=== PATIENT | female | born 1930 | race Caucasian/White ===

== ENCOUNTER → 2016-09-14 | Outpatient (CLI) | payer MEDICARE, OTHER ==
[~2016-09-14] MED LIST: ACET-2890 PO; ATEN100T PO; BISA5TAB12 PO; CALC-946 PO; CHLO118M SSP; CLON0.2T PO; CLOP75TA33 PO; DEXT15DR5 BOTH EYES; DOCU-168 PO; DULO60CA56 PO; IPRA3AMP AEROSOL; LISI-621 PO; MAGN400O4 PO; MINE120C3 TOP; MV-M1TAB2 PO; NIFE60TA10 PO; ONDA-55 PO; POLY17PO6 PO; POTA20TA10 PO; SULF1TAB42 PO; TRAM50TA53 PO
== END ==
LOC: LABNH.AP 00:46
PROVIDERS: ATTEND Family Medicine
DX: E11.9 Type 2 diabetes mellitus without complications (principal)
CPT/HCPCS: 36415; 83036; P9604

== ENCOUNTER → 2016-10-19 | Outpatient (CLI) | payer MEDICARE, OTHER ==
[2016-10-19 16:36] LABS: BLOOD, URINE 3+ (NEGATIVE); COLOR,URINE YELLOW (YELLOW); LEUKOCYTE ESTERASE ,URINE 3+ (NEGATIVE); NITRITE,URINE POSITIVE (NEGATIVE); UROBILINOGEN,URINE 0.2 EU/DL (NORMAL)
[2016-10-19 16:45] LABS: BACTERIA,URINE 3+ (NEGATIVE); RBC,URINE 0-1 /HPF (0-3); WBC,URINE TNTC /HPF (0-5)
[2016-10-19 16:46] LABS: SQUAMOUS EPITHELIAL CELL,UR 0-5
== END ==
LOC: LABN.AP 16:19
PROVIDERS: ATTEND Family Medicine
DX: R31.9 Hematuria, unspecified (principal); R82.90 Unspecified abnormal findings in urine
CPT/HCPCS: 81001; 87077; 87086; 87186

== ENCOUNTER → 2016-10-26 | Outpatient (CLI) | payer MEDICARE, OTHER ==
[2016-10-26 08:32] LABS: ANION GAP 14 MEQ/L (5-15); BUN/CREATININE RATIO 23 RATIO (6-26); CALCIUM 9.6 MG/DL (8.4-10.2); CHLORIDE 104 MEQ/L (98-107); CO2 - CARBON DIOXIDE 28 MEQ/L (22-30); CREATININE 0.7 MG/DL (0.7-1.2); GLOMERULAR FILTRATION RATE 80; GLUCOSE 164 MG/DL (65-110); POTASSIUM 3.9 MEQ/L (3.6-5); SODIUM 146 MEQ/L (134-144)
== END ==
LOC: LABNH.AP 00:34
PROVIDERS: ATTEND Family Medicine
DX: I10 Essential (primary) hypertension (principal)
CPT/HCPCS: 36415; 80048; P9604

== ENCOUNTER 2017-12-23 16:53 | Inpatient (IN) ==
[2017-12-23] MEDS ORDERED: SALINE FLUSH 10ml SYRINGE IVF PRN (17:07)
--- NOTE | 2017-12-23 18:31 | Emergency Department Report ---
General Adult HPI - General Chief complaint: Medical Emergency <Charles Albert - 12/23/17 18:52> Stated complaint: WEAKNESS, DECREASED O2 <Charles Albert - 12/23/17 18:52> Source: EMS, RN notes reviewed ( ) <Payal Hernandez 12/23/17 18:34> Mode of arrival: EMS <Payal Hernandez 12/23/17 18:34> Limitations: altered mental status <Payal Hernandez 12/23/17 18:34> - History of Present Illness HPI narrative: [place] after staff noted fever and decreased SpO2 today. Staff reports pt was recently placed on Keflex for "urinary retention". Pt chart has labs from 12/20/17 with fairly non acute findings. PT is non verbal and info is from EMS report only. <Payal Hernandez 12/23/17 18:51> Onset (ago): hour(s) <Payal Hernandez 12/23/17 18:51> Consistency: constant <Payal Hernandez 12/23/17 18:51> - Related Data Home Medications Medication Instructions Recorded Confirmed Acetaminophen [Acetaminophen 8 650 mg PO Q8H PRN #0 06/07/15 12/23/17 Hour] Atenolol [Tenormin] 100 mg PO DAILY 08/08/17 12/23/17 Chlorhexidine Rinse [Peridex] 15 ml MM HS 08/08/17 12/23/17 Cholecalciferol (Vitamin D3) 5,000 unit PO DAILY 08/08/17 12/23/17 [Vitamin D3] CloNIDine [Catapres] 0.2 mg PO TID 08/08/17 12/23/17 Docusate Sodium [Colace] 100 mg PO Q2D 08/08/17 12/23/17 Duloxetine [Cymbalta] 60 mg PO DAILY 08/08/17 12/23/17 Estradiol Vag Cream [Estrace Vag 1 applicatio [facility] 08/08/17 12/23/17 Cream] Lisinopril [Prinivil] 20 mg PO BID 08/08/17 12/23/17 Metformin [Glucophage] 500 mg PO BIDWM 08/08/17 12/23/17 Milk of Magnesia [Mom] 30 ml PO DAILY PRN 08/08/17 12/23/17 NIFEdipine [Adalat cc] 60 mg PO BID 08/08/17 12/23/17 Sennosides [Senna] 8.6 mg PO BID 08/08/17 12/23/17 Tramadol [Ultram] 50 mg PO Q6HR PRN 08/08/17 12/23/17 Acetaminophen [Acetaminophen ER] 650 mg PO BID 08/09/17 12/23/17 PEG 3350 17gm PACKET [Miralax] 17 gm PO DAILY PRN 08/09/17 12/23/17 Polyvinyl Alcohol [Artificial 1 drop EACH EYE BID 08/09/17 12/23/17 Tears] Atorvastatin [Lipitor] 10 mg PO HS 10/08/17 12/23/17 Clopidogrel [Plavix] 75 mg PO DAILY 10/08/17 12/23/17 Eucerin Cream [Eucerin] 1 applicatio TP DAILY PRN 10/08/17 12/23/17 Guaifenesin/Dextromethorphan 10 ml PO Q4H PRN 10/08/17 12/23/17 [Diabetic Tussin Dm Max-Str Liq] Mirabegron [Myrbetriq] 25 mg PO DAILY 10/08/17 12/23/17 Multivit,Calc,Mins/Iron/Folic 1 tab PO DAILY 10/08/17 12/23/17 [Thera-M Tablet] CephALEXin [Keflex 500 mg] 500 mg PO TID 12/23/17 12/23/17 <Charles Albert - 12/23/17 18:52> Allergies Allergy/AdvReac Type Severity Reaction Status Date / Time codeine AdvReac Unknown Vomiting Verified 12/23/17 17:25 <Charles Albert - 12/23/17 18:52> Review of Systems Limitations: ROS unobtainable due to patient's medical condition <Payal Hernandez - 12/23/17 18:51> PFS Patient Stated Medical History Cerebrovascular Accident Yes Dementia Yes Transient Ischemic Attacks ( Yes TIA) Cataracts Yes Congestive Heart Failure Yes Coronary Artery Disease Yes Heart Murmur Yes Hypertension Yes Rheumatic Fever Yes Asthma Yes Chronic Obstructive Pulmonary Yes Disease (COPD) Pneumonia Yes Sleep Apnea No Diabetes Mellitus Type 2 Yes Gastroesophageal Reflux No Disease Hx Incontinence Yes Hx Urinary Tract Infection Yes Clotting Problems Yes: takes plavix Anesthesia Reactions No Other Yes: Exc melanomas--skin graft left wrist Depression Yes Obsessive Compulsive Disorder Yes Post Menopausal Yes <Charles Albert Elissa 12/23/17 18:52> Patient Stated Medical History Cerebrovascular Accident Yes Dementia Yes Transient Ischemic Attacks ( Yes TIA) Cataracts Yes Congestive Heart Failure Yes Coronary Artery Disease Yes Heart Murmur Yes Hypertension Yes Rheumatic Fever Yes Asthma Yes Chronic Obstructive Pulmonary Yes Disease (COPD) Pneumonia Yes Sleep Apnea No Diabetes Mellitus Type 2 Yes Gastroesophageal Reflux No Disease Hx Incontinence Yes Hx Urinary Tract Infection Yes Clotting Problems Yes: takes plavix Anesthesia Reactions No Other Yes: Exc melanomas--skin graft left wrist Depression Yes Obsessive Compulsive Disorder Yes Post Menopausal Yes <Payal Hernandez 12/23/17 18:34> - Social History Smoking status: Never smoker <Payal Hernandez 12/23/17 18:34> second hand exposure: No <Payal Hernandez 12/23/17 18:34> Substance use type: does not use <Payal Hernandez 12/23/17 18:34> Alcohol intake frequency: does not drink <Payal Hernandez 12/23/17 18:34> Does patient use chewing tobacco?: No <Payal Hernandez 12/23/17 18:34> Physical Exam - Limitations Limitations: other (limited verbal/ slow to respond) <Payal Hernandez 18:51> - General General appearance: alert <Payal Hernandez 12/23/17 18:51> - Normal Exams: Head:: Normocephalic without trauma <Payal Hernandez 12/23/17 18:51> Eyes:: Pupils are PERRLA w/ EOMI <Payal Hernandez 12/23/17 18:51> Chest/Respirations:: Clear all hoover, with good airflow, and symmetry bilaterally (diminished bilaterally) <Payal Hernandez 12/23/17 18:51> Cardiovascular:: Regular rate and rhythm, without murmur or gallop, Pulses 2+ all extremities, capillary refill, <2 seconds all extremities <Payal Hernandez 12/23/17 18:51> Abdomen:: Bowel sounds positive, soft, non-tender, non-distended <Payal Hernandez - 12/23/17 18:51> Musculoskeletal:: No tenderness, or deformity noted, good range of motion, all extremities <Payal Hernandez 12/23/17 18:51> Integumentary:: No rashes <Payal Hernandez 12/23/17 18:51> Neurological:: Patient is alert (slow to respond, verbal appropriate), and oriented, cranial nerves, motor/sensory/cerebellar, exams w/o gross deficits, to observation <Payal Hernandez 12/23/17 18:51> Psychiatric:: Patient exhibits, appropriate attention, emotion and affect < Payal Hernandez 12/23/17 18:51> Course Vital Signs Temperature 98.8 F 12/23/17 16:53 Pulse Rate 76 12/23/17 16:53 Respiratory Rate 18 12/23/17 16:53 Blood Pressure 187/81 H 12/23/17 16:53 Pulse Oximetry 92 12/23/17 16:53 Temperature 98.8 F 12/23/17 16:53 Pulse Rate 74 12/23/17 18:00 Respiratory Rate 18 12/23/17 16:53 Blood Pressure 179/84 H 12/23/17 18:00 Pulse Oximetry 94 12/23/17 18:00 <Charles Albert C - 12/23/17 18:52> Vital Signs Temperature 98.8 F 12/23/17 16:53 Pulse Rate 76 12/23/17 16:53 Respiratory Rate 18 12/23/17 16:53 Blood Pressure 187/81 H 12/23/17 16:53 Pulse Oximetry 92 12/23/17 16:53 Temperature 98.8 F 12/23/17 16:53 Pulse Rate 74 12/23/17 18:00 Respiratory Rate 18 12/23/17 16:53 Blood Pressure 179/84 H 12/23/17 18:00 Pulse Oximetry 94 12/23/17 18:00 <Payal Hernandez - 12/23/17 18:34> Medical Decision Making - MDM Narrative Medical decision making narrative: EKG, labs and Xray reviewed. WBC elevated without source. Pt has been afebrile while in the ER. Unable to wean pt fro O2. Hospitalist contacted and will admit. Additional labs and CT requested and ordered. <Payal Hernandez - 12/23/17 18:51> - Differential Diagnosis UTI, pneumonia, A fib, hypoxia <Payal Hernandez - 12/23/17 18:51> - Lab Data Lab results reviewed: Yes: I reviewed the patient's lab results. <Payal Hernandez - 12/23/17 18:51> Result diagrams: 12/23/17 17:16 12/23/17 17:16 <Charles Albert C - 12/23/17 18:52> Lab Results 12/23/17 12/23/17 12/23/17 Range/Units 17:16 17:16 17:16 WBC 14.4 H (4.5-11.0) T/MM3 RBC 3.96 L (4.00-5.20) M/MM3 Hgb 12.8 (12-16) GM/DL Hct 40.8 (36-46) % MCV 103.0 H (80-100) UM3 MCH 32.3 (26-34) UUG MCHC 31.4 (31-37) GM/DL RDW Std Deviation 50.4 H (36.9-50.2) FL Plt Count 363 (130-400) T/MM3 MPV 10.1 (9.4-12.4) UM3 Immature Gran % (Auto) 0.3 (0.0-0.5) % Neut % (Auto) 73.0 H (33-66) % Lymph % (Auto) 21.1 L (23-45) % Henderson % (Auto) 5.3 (0-9.0) % Eos % (Auto) 0.2 (0-4) % Baso % (Auto) 0.1 (0-2) % Neut # (Auto) 10.5 H (1.8-7.7) T/MM3 Lymph # (Auto) 3.0 (1-4.8) T/MM3 Henderson # (Auto) 0.8 (0-0.8) T/MM3 Eos # (Auto) 0.0 (0-0.5) T/MM3 Baso # (Auto) 0.0 (0-0.2) T/MM3 Abs Immat Gran (auto) 0.04 H (0.00-0.03) T/MM3 Turbidity < 20 (0-20) Sodium 145 (136-146) MEQ/L Potassium 3.6 (3.6-5) MEQ/L Chloride 99 (98-107) MEQ/L Carbon Dioxide 33 H (22-30) MEQ/L Anion Gap 13 (5-15) meq/L BUN 14.0 (7-17) MG/DL Creatinine 0.6 L (0.7-1.2) mg/dL GFR Calculation 95 BUN/Creatinine Ratio 23 (6-26) RATIO Glucose 258 H (65-110) MG/DL Calculated Osmolality 289 H (261-280) MOSM/KG Calcium 9.8 (8.4-10.2) MG/DL Total Bilirubin 0.60 (0.20-1.30) MG/DL Icterus Index < 2 (0-7) AST 34 (14-36) U/L ALT 35 (1-35) U/L Alkaline Phosphatase 102 (38-126) U/L Total Protein 8.0 (6.3-8.2) g/dL Albumin 4.2 (3.5-5.0) g/dL Globulin 3.8 H (2.4-3.6) G/DL Albumin/Globulin Ratio 1.1 (1.1-2.2) RATIO Plasma Lactate (0.6-2.2) MMOL/L Specimen Hemolysis 31 H (0-25) Ur Collection Type Urine, cath norton Urine Color Yellow (YELLOW) Urine Clarity Clear Urine pH 7.0 (5.0-8.0) Ur Specific Mathews 1.010 L (1.015-1.025) Urine Protein 1+ A (NEGATIVE) Urine Glucose (UA) Negative (NEGATIVE) Urine Ketones Negative (NEGATIVE) Urine Occult Blood Negative (NEGATIVE) Urine Nitrate Negative (NEGATIVE) Urine Bilirubin Negative (NEGATIVE) Urine Urobilinogen 0.2 (NORMAL) EU/DL Ur Leukocyte Esterase Trace A (NEGATIVE) Urine RBC None seen (0-3) /HPF Urine WBC 5-10 H (0-5) /HPF Urine Bacteria None seen (NEGATIVE) Urine Yeast Pseudohyphae present A (NEGATIVE) Ur Culture Indicated? Cult not indicated 12/23/17 Range/Units 17:54 WBC (4.5-11.0) T/MM3 RBC (4.00-5.20) M/MM3 Hgb (12-16) GM/DL Hct (36-46) % MCV (80-100) UM3 MCH (26-34) UUG MCHC (31-37) GM/DL RDW Std Deviation (36.9-50.2) FL Plt Count (130-400) T/MM3 MPV (9.4-12.4) UM3 Immature Gran % (Auto) (0.0-0.5) % Neut % (Auto) (33-66) % Lymph % (Auto) (23-45) % Henderson % (Auto) (0-9.0) % Eos % (Auto) (0-4) % Baso % (Auto) (0-2) % Neut # (Auto) (1.8-7.7) T/MM3 Lymph # (Auto) (1-4.8) T/MM3 Henderson # (Auto) (0-0.8) T/MM3 Eos # (Auto) (0-0.5) T/MM3 Baso # (Auto) (0-0.2) T/MM3 Abs Immat Gran (auto) (0.00-0.03) T/MM3 Turbidity (0-20) Sodium (136-146) MEQ/L Potassium (3.6-5) MEQ/L Chloride (98-107) MEQ/L Carbon Dioxide (22-30) MEQ/L Anion Gap (5-15) meq/L BUN (7-17) MG/DL Creatinine (0.7-1.2) mg/dL GFR Calculation BUN/Creatinine Ratio (6-26) RATIO Glucose (65-110) MG/DL Calculated Osmolality (261-280) MOSM/KG Calcium (8.4-10.2) MG/DL Total Bilirubin (0.20-1.30) MG/DL Icterus Index (0-7) AST (14-36) U/L ALT (1-35) U/L Alkaline Phosphatase (38-126) U/L Total Protein (6.3-8.2) g/dL Albumin (3.5-5.0) g/dL Globulin (2.4-3.6) G/DL Albumin/Globulin Ratio (1.1-2.2) RATIO Plasma Lactate 2.0 (0.6-2.2) MMOL/L Specimen Hemolysis (0-25) Ur Collection Type Urine Color (YELLOW) Urine Clarity Urine pH (5.0-8.0) Ur Specific Mathews (1.015-1.025) Urine Protein (NEGATIVE) Urine Glucose (UA) (NEGATIVE) Urine Ketones (NEGATIVE) Urine Occult Blood (NEGATIVE) Urine Nitrate (NEGATIVE) Urine Bilirubin (NEGATIVE) Urine Urobilinogen (NORMAL) EU/DL Ur Leukocyte Esterase (NEGATIVE) Urine RBC (0-3) /HPF Urine WBC (0-5) /HPF Urine Bacteria (NEGATIVE) Urine Yeast (NEGATIVE) Ur Culture Indicated? <Charles Albert Elissa - 12/23/17 18:52> Lab Results 12/23/17 12/23/17 12/23/17 Range/Units 17:16 17:16 17:16 WBC 14.4 H (4.5-11.0) T/MM3 RBC 3.96 L (4.00-5.20) M/MM3 Hgb 12.8 (12-16) GM/DL Hct 40.8 (36-46) % MCV 103.0 H (80-100) UM3 MCH 32.3 (26-34) UUG MCHC 31.4 (31-37) GM/DL RDW Std Deviation 50.4 H (36.9-50.2) FL Plt Count 363 (130-400) T/MM3 MPV 10.1 (9.4-12.4) UM3 Immature Gran % (Auto) 0.3 (0.0-0.5) % Neut % (Auto) 73.0 H (33-66) % Lymph % (Auto) 21.1 L (23-45) % Henderson % (Auto) 5.3 (0-9.0) % Eos % (Auto) 0.2 (0-4) % Baso % (Auto) 0.1 (0-2) % Neut # (Auto) 10.5 H (1.8-7.7) T/MM3 Lymph # (Auto) 3.0 (1-4.8) T/MM3 Henderson # (Auto) 0.8 (0-0.8) T/MM3 Eos # (Auto) 0.0 (0-0.5) T/MM3 Baso # (Auto) 0.0 (0-0.2) T/MM3 Abs Immat Gran (auto) 0.04 H (0.00-0.03) T/MM3 Turbidity < 20 (0-20) Sodium 145 (136-146) MEQ/L Potassium 3.6 (3.6-5) MEQ/L Chloride 99 (98-107) MEQ/L Carbon Dioxide 33 H (22-30) MEQ/L Anion Gap 13 (5-15) meq/L BUN 14.0 (7-17) MG/DL Creatinine 0.6 L (0.7-1.2) mg/dL GFR Calculation 95 BUN/Creatinine Ratio 23 (6-26) RATIO Glucose 258 H (65-110) MG/DL Calculated Osmolality 289 H (261-280) MOSM/KG Calcium 9.8 (8.4-10.2) MG/DL Total Bilirubin 0.60 (0.20-1.30) MG/DL Icterus Index < 2 (0-7) AST 34 (14-36) U/L ALT 35 (1-35) U/L Alkaline Phosphatase 102 (38-126) U/L Total Protein 8.0 (6.3-8.2) g/dL Albumin 4.2 (3.5-5.0) g/dL Globulin 3.8 H (2.4-3.6) G/DL Albumin/Globulin Ratio 1.1 (1.1-2.2) RATIO Plasma Lactate (0.6-2.2) MMOL/L Specimen Hemolysis 31 H (0-25) Ur Collection Type Urine, cath norton Urine Color Yellow (YELLOW) Urine Clarity Clear Urine pH 7.0 (5.0-8.0) Ur Specific Mathews 1.010 L (1.015-1.025) Urine Protein 1+ A (NEGATIVE) Urine Glucose (UA) Negative (NEGATIVE) Urine Ketones Negative (NEGATIVE) Urine Occult Blood Negative (NEGATIVE) Urine Nitrate Negative (NEGATIVE) Urine Bilirubin Negative (NEGATIVE) Urine Urobilinogen 0.2 (NORMAL) EU/DL Ur Leukocyte Esterase Trace A (NEGATIVE) Urine RBC None seen (0-3) /HPF Urine WBC 5-10 H (0-5) /HPF Urine Bacteria None seen (NEGATIVE) Urine Yeast Pseudohyphae present A (NEGATIVE) Ur Culture Indicated? Cult not indicated 12/23/17 Range/Units 17:54 WBC (4.5-11.0) T/MM3 RBC (4.00-5.20) M/MM3 Hgb (12-16) GM/DL Hct (36-46) % MCV (80-100) UM3 MCH (26-34) UUG MCHC (31-37) GM/DL RDW Std Deviation (36.9-50.2) FL Plt Count (130-400) T/MM3 MPV (9.4-12.4) UM3 Immature Gran % (Auto) (0.0-0.5) % Neut % (Auto) (33-66) % Lymph % (Auto) (23-45) % Henderson % (Auto) (0-9.0) % Eos % (Auto) (0-4) % Baso % (Auto) (0-2) % Neut # (Auto) (1.8-7.7) T/MM3 Lymph # (Auto) (1-4.8) T/MM3 Henderson # (Auto) (0-0.8) T/MM3 Eos # (Auto) (0-0.5) T/MM3 Baso # (Auto) (0-0.2) T/MM3 Abs Immat Gran (auto) (0.00-0.03) T/MM3 Turbidity (0-20) Sodium (136-146) MEQ/L Potassium (3.6-5) MEQ/L Chloride (98-107) MEQ/L Carbon Dioxide (22-30) MEQ/L Anion Gap (5-15) meq/L BUN (7-17) MG/DL Creatinine (0.7-1.2) mg/dL GFR Calculation BUN/Creatinine Ratio (6-26) RATIO Glucose (65-110) MG/DL Calculated Osmolality (261-280) MOSM/KG Calcium (8.4-10.2) MG/DL Total Bilirubin (0.20-1.30) MG/DL Icterus Index (0-7) AST (14-36) U/L ALT (1-35) U/L Alkaline Phosphatase (38-126) U/L Total Protein (6.3-8.2) g/dL Albumin (3.5-5.0) g/dL Globulin (2.4-3.6) G/DL Albumin/Globulin Ratio (1.1-2.2) RATIO Plasma Lactate 2.0 (0.6-2.2) MMOL/L Specimen Hemolysis (0-25) Ur Collection Type Urine Color (YELLOW) Urine Clarity Urine pH (5.0-8.0) Ur Specific Mathews (1.015-1.025) Urine Protein (NEGATIVE) Urine Glucose (UA) (NEGATIVE) Urine Ketones (NEGATIVE) Urine Occult Blood (NEGATIVE) Urine Nitrate (NEGATIVE) Urine Bilirubin (NEGATIVE) Urine Urobilinogen (NORMAL) EU/DL Ur Leukocyte Esterase (NEGATIVE) Urine RBC (0-3) /HPF Urine WBC (0-5) /HPF Urine Bacteria (NEGATIVE) Urine Yeast (NEGATIVE) Ur Culture Indicated? <Payal Hernandez 12/23/17 18:34> - Radiology Data Radiology results reviewed: Yes: I reviewed the patient's radiology results. < Payal Hernandez 12/23/17 18:51> - EKG Data EKG #1 EKG results narrative: Sinus rhythm. 74 bpm. No STEMI. <Charles Albert 12/23/17 18:52> Disposition Clinical Impression: Hypoxia Leukocytosis, unspecified Qualifiers: Leukocytosis type: unspecified Qualified Code(s): D72.829 - Elevated white blood cell count, unspecified <Charles Albert 12/23/17 18:52> Disposition: 02 To [facility] Acute Care <Charles Albert 12/23/17 18:52> Instructions: <Charles Albert 12/23/17 18:52> Prescriptions: No Action CloNIDine [Catapres] 0.2 mg PO TID Atenolol [Tenormin] 100 mg PO DAILY Estradiol Vag Cream [Estrace Vag Cream] 1 applicatio VG [facility] Duloxetine [Cymbalta] 60 mg PO DAILY Tramadol [Ultram] 50 mg PO Q6HR PRN PRN Reason: Pain Metformin [Glucophage] 500 mg PO BIDWM Cholecalciferol (Vitamin D3) [Vitamin D3] 5,000 unit PO DAILY Sennosides [Senna] 8.6 mg PO BID Chlorhexidine Rinse [Peridex] 15 ml MM HS Acetaminophen [Acetaminophen ER] 650 mg PO BID Polyvinyl Alcohol [Artificial Tears] 1 drop EACH EYE BID Mirabegron [Myrbetriq] 25 mg PO DAILY Clopidogrel [Plavix] 75 mg PO DAILY Multivit,Calc,Mins/Iron/Folic [Thera-M Tablet] 1 tab PO DAILY Guaifenesin/Dextromethorphan [Diabetic Tussin Dm Max-Str Liq] 10 ml PO Q4H PRN PRN Reason: Cough Acetaminophen [Acetaminophen 8 Hour] 650 mg PO Q8H PRN #0 PRN Reason: PAIN Docusate Sodium [Colace] 100 mg PO Q2D Lisinopril [Prinivil] 20 mg PO BID Milk of Magnesia [Mom] 30 ml PO DAILY PRN PRN Reason: Constipation NIFEdipine [Adalat cc] 60 mg PO BID PEG 3350 17gm PACKET [Miralax] 17 gm PO DAILY PRN PRN Reason: Constipation Eucerin Cream [Eucerin] 1 applicatio TP DAILY PRN PRN Reason: Prn Orders Atorvastatin [Lipitor] 10 mg PO HS CephALEXin [Keflex 500 mg] 500 mg PO TID <Charles Albert - 12/23/17 18:52> Referrals: Ronald Burgess MD [Primary Care Provider] - <Charles Albert - 12/23/17 18:52> Forms: <Charles Albert - 12/23/17 18:52> Time of Disposition: 18:50 <Payal Hernandez 12/23/17 18:51> - Seen By: midlevel <Payal Hernandez 12/23/17 18:51>
[2017-12-23] MEDS ORDERED: SALINE FLUSH 10ml SYRINGE ONE (18:58)
[2017-12-23] MEDS ORDERED: IOHEXOL 350mg/ml 75ml INJECTION ONE (18:58)
[2017-12-23] MEDS ORDERED: TRAMADOL 50 MG TABLET PO PRN (19:13)
[2017-12-23] MEDS ORDERED: SENNA + DOCUSATE TABLET PO PRN (19:54)
[2017-12-23] MEDS ORDERED: ONDANSETRON 4 MG/2 ML INJECTION IVP PRN (19:54)
[2017-12-23 19:56] VITALS: BMI 33.5
[2017-12-23] MEDS ORDERED: FALL RISK - PHARMACY CONSULT MC ONE (20:08)
[2017-12-23] MEDS: NS 1,000 ML IV SCH (20:20)
[2017-12-23] MEDS: ATORVASTATIN 10 MG TABLET PO SCH (20:39)
[2017-12-23] MEDS: LISINOPRIL 20 MG TABLET PO SCH (20:39)
[2017-12-23] MEDS ORDERED: MELATONIN 1 MG TABLET PO PRN (20:42)
[2017-12-23] MEDS ORDERED: CEFTRIAXONE 1 G in NS 100 ML IV SCH (20:45)
[2017-12-23] MEDS ORDERED: FLUCONAZOLE 150 MG TABLET PO ONE (20:45)
--- NOTE | 2017-12-23 20:55 | History & Physical Report ---
History of Present Illness Date: 12/23/17 Chief complaint: subjective fever, hypoxia HPI: The pt is a 87 yo who lives at [facility] and is minimally active at the facility, mostly she gets around by wheelchair she says. Over the past 2 days the pt reports having a dry nonproductive cough, and today subjective fevers although the staff at the SNF did not report any. At the facility, it was reported that her SaO2 was in the m70's, but EMS recorded mid 80's, in the Er SaO2 wa smid 90's on 3 lpm NC, Review of Systems All systems PM: 10-point ROS was reviewed, no additional remarkable complaints except Past Medical History Family History: No Significant Family History - Social History Smoking status: Never smoker Medications Home Medications Medication Instructions Recorded Confirmed Type Acetaminophen [Acetaminophen 8 650 mg PO Q8H PRN #0 06/07/15 12/23/17 History Hour] Atenolol [Tenormin] 100 mg PO DAILY 08/08/17 12/23/17 History Chlorhexidine Rinse [Peridex] 15 ml MM HS 08/08/17 12/23/17 History Cholecalciferol (Vitamin D3) 5,000 unit PO DAILY 08/08/17 12/23/17 History [Vitamin D3] CloNIDine [Catapres] 0.2 mg PO TID 08/08/17 12/23/17 History Docusate Sodium [Colace] 100 mg PO Q2D 08/08/17 12/23/17 History Duloxetine [Cymbalta] 60 mg PO DAILY 08/08/17 12/23/17 History Estradiol Vag Cream [Estrace Vag 1 applicatio [facility] 08/08/17 12/23/17 History Cream] Lisinopril [Prinivil] 20 mg PO BID 08/08/17 12/23/17 History Metformin [Glucophage] 500 mg PO BIDWM 08/08/17 12/23/17 History Milk of Magnesia [Mom] 30 ml PO DAILY PRN 08/08/17 12/23/17 History NIFEdipine [Adalat cc] 60 mg PO BID 08/08/17 12/23/17 History Sennosides [Senna] 8.6 mg PO BID 08/08/17 12/23/17 History Tramadol [Ultram] 50 mg PO Q6HR PRN 08/08/17 12/23/17 History Acetaminophen [Acetaminophen ER] 650 mg PO BID 08/09/17 12/23/17 History PEG 3350 17gm PACKET [Miralax] 17 gm PO DAILY PRN 08/09/17 12/23/17 History Polyvinyl Alcohol [Artificial 1 drop EACH EYE BID 08/09/17 12/23/17 History Tears] Atorvastatin [Lipitor] 10 mg PO HS 10/08/17 12/23/17 History Clopidogrel [Plavix] 75 mg PO DAILY 10/08/17 12/23/17 History Eucerin Cream [Eucerin] 1 applicatio TP DAILY PRN 10/08/17 12/23/17 History Guaifenesin/Dextromethorphan 10 ml PO Q4H PRN 10/08/17 12/23/17 History [Diabetic Tussin Dm Max-Str Liq] Mirabegron [Myrbetriq] 25 mg PO DAILY 10/08/17 12/23/17 History Multivit,Calc,Mins/Iron/Folic 1 tab PO DAILY 10/08/17 12/23/17 History [Thera-M Tablet] CephALEXin [Keflex 500 mg] 500 mg PO TID 12/23/17 12/23/17 History Allergies Allergy/AdvReac Type Severity Reaction Status Date / Time codeine AdvReac Unknown Vomiting Verified 12/23/17 17:25 Exam Vital Signs: Temperature 98.5 F 12/23/17 19:54 Pulse Rate 75 12/23/17 19:54 Respiratory Rate 22 12/23/17 19:54 Blood Pressure 160/84 H 12/23/17 19:54 Pulse Oximetry 95 12/23/17 19:54 Height/Weight/BMI: Height 1.68 m Weight 94.2 kg Body Mass Index 33.5 - Constitutional Present: no acute distress, obese Comments: very limited ability to answer questions. - Routine Respiratory Exam Present: CTA bilaterally. Absent: rales, rhonchi - Routine Cardiovascular Exam Present: RRR, no murmur - Routine Abdominal Exam Present: soft, normoactive bowel sounds, non distended, non tender Results - Labs CBC & Chem 7: 12/23/17 17:16 12/23/17 17:16 Microbiology Results: Microbiology 12/23/17 18:00 Peripheral/Iv Start Blood Culture - Preliminary Culture Initiated - Results Pending 12/23/17 17:54 Peripheral/Iv Start Blood Culture - Preliminary Culture Initiated - Results Pending Assessment and Plan (1) HTN (hypertension) Current visit: Yes Status: Acute (2) Diabetes 1.5, managed as type 2 Current visit: Yes Status: Acute (3) Hypoxia Current visit: Yes Status: Acute Assessment and Plan: CXR doesn't show definitive infiltrates, but due to cough and WBC, will empirically start on azithromycin and rocephin, I am concerned about the elevated D-dimer, CT chest ordered to r/o PE, started on lovenox. but already on plavix, norton placed due to >600 cc in bladder, pt has long hx of urinary retention, yeast in urine, given one dose of diflucan, as well as nystatin in inguinal folds, reassess in am. DVT Prophylaxis: Lovenox GI Prophylaxis: Protonix Resuscitation Status: Full Code - Physician Narrative Narrative: Date: 12/23/17 Time: 2044 Hospital Course Summary Disclaimer: The visit summary below is not to be considered part of the above Progress Note.
[2017-12-23] MEDS ORDERED: ALBUTEROL/IPRATROPIUM 2.5mg-0.5mg/3ml NEB AEROSOL PRN (21:18)
--- NOTE | 2017-12-24 09:15 | CT Scan Report ---
Indication: Low SpO2 PROCEDURE: CT angio pulm emboli: Encounter: Initial Comparison: December 23 2017 Technique: Axial CT pulmonary angiographic phase images were performed through the chest after the administration of intravenous contrast. Coronal and Sagittal MIP reconstructed images were created and reviewed. Automated Exposure Control and Iterative Reconstruction dose reducing techniques were utilized. Contrast: Omnipaque 350 73 mL Findings: Pulmonary arteries: Exam is diagnostic to the subsegmental pulmonary arterial level. No filling defects identified to suggest a pulmonary embolus. Other findings: Patchy right upper and lower lobe infiltrates with mild atelectasis. No pneumothorax. The central airways are patent. No axillary or mediastinal adenopathy. Mild cardiomegaly. No pericardial effusion. The upper abdomen shows fatty infiltration of the liver. Impression: No pulmonary embolus. Patchy infiltrates could represent pneumonia or aspiration. There is a preliminary report by [employer]. .
--- NOTE | 2017-12-24 09:19 | XRay Report ---
Indication: low SpO2 PROCEDURE: XR chest 1V: Encounter: Initial Comparison: CT chest from the same date Findings: Lower lobe airspace opacities better seen on the CT. No pleural effusion or pneumothorax. Cardiomegaly. Mediastinal contours are grossly normal. Pulmonary vascularity appears normal. Impression: Lower lobe airspace disease better evaluated on the CT. .
[2017-12-24] MEDS: AZITHROMYCIN 500 MG TABLET PO SCH (09:22)
[2017-12-24] MEDS: NS 1,000 ML IV SCH ×2 (09:22→23:01)
[2017-12-24] MEDS: DULOXETINE 60 MG CAPSULE PO SCH (09:23)
[2017-12-24] MEDS: CLOPIDOGREL 75 MG TABLET PO SCH (09:23)
[2017-12-24] MEDS: ENOXAPARIN 40 MG/0.4 ML INJECTION SQ SCH (09:25)
[2017-12-24] MEDS: MIRABEGRON 25mg TABLET PO SCH (09:25)
[2017-12-24] MEDS: LISINOPRIL 20 MG TABLET PO SCH ×2 (09:25→20:47)
[2017-12-24] MEDS: ATENOLOL 100 MG TABLET PO SCH (17:30)
[2017-12-24] MEDS: CEFTRIAXONE 1 G in D5W 100 ML IV SCH (20:22)
[2017-12-24] MEDS: ATORVASTATIN 10 MG TABLET PO SCH (20:47)
[2017-12-25] MEDS: MIRABEGRON 25mg TABLET PO SCH (08:31)
[2017-12-25] MEDS: DULOXETINE 60 MG CAPSULE PO SCH (08:31)
[2017-12-25] MEDS: ENOXAPARIN 40 MG/0.4 ML INJECTION SQ SCH (08:31)
[2017-12-25] MEDS: LISINOPRIL 20 MG TABLET PO SCH ×2 (08:31→20:25)
[2017-12-25] MEDS: CLOPIDOGREL 75 MG TABLET PO SCH (08:31)
[2017-12-25] MEDS: AZITHROMYCIN 500 MG TABLET PO SCH (08:32)
[2017-12-25] MEDS: ATENOLOL 100 MG TABLET PO SCH (08:32)
--- NOTE | 2017-12-25 19:00 | Progress Note ---
- Date 12/25/17 Subjective: Patient remains largely nonverbal to attempts at system review. She is appearing less anxious and seems to be resting adequately on nasal cannula in bed Objective Vital signs: Temperature 98.9 F 12/25/17 17:01 Pulse Rate 75 12/25/17 17:01 Respiratory Rate 16 12/25/17 17:01 Blood Pressure 180/110 H 12/25/17 17:01 Pulse Oximetry 90 12/25/17 17:01 Height/Weight/BMI: Height 5 ft 6 in Weight 93.8 kg Body Mass Index 33.5 - Constitutional Present: well developed, disheveled. Absent: cooperative - Routine HEENT Exam Head: Present: normocephalic, atraumatic Eye: Present: EOMI, normal accommodation ENT: Present: mucous membranes moist, dentition normal - Routine Respiratory Exam Present: CTA bilaterally. Absent: respiratory distress, wheezes - Routine Cardiovascular Exam Present: RRR, S1, S2. Absent: murmur - Routine Abdominal Exam Present: soft, normoactive bowel sounds, non distended. Absent: tenderness - Routine Extremities Exam Present: normal capillary refill - Routine Skin Exam Present: dry, warm - Routine Neurological Exam Present: alert, oriented X3, CN II-XII intact - Routine Lymphatic Exam Lymphatic: Absent: adenopathy - Routine Psychiatric Exam Present: normal affect Results - Labs CBC & Chem 7: 12/24/17 04:37 12/24/17 04:37 Microbiology Results: Microbiology 12/23/17 17:54 Peripheral/Iv Start Blood Culture - Preliminary No Growth After 2 Days 12/23/17 18:00 Peripheral/Iv Start Blood Culture - Preliminary No Growth After 2 Days Assessment and Plan (1) Hypoxia Current visit: Yes Status: Acute (2) HTN (hypertension) Current visit: Yes Status: Acute (3) Diabetes 1.5, managed as type 2 Current visit: Yes Status: Acute (4) Dementia with behavioral disturbance Current visit: Yes Status: Chronic (5) Personality disorder, unspecified Current visit: Yes Status: Acute Assessment and Plan: Patient appears to be making small improvements. She is still requiring 1 L of oxygen to maintain saturation at 93%. On room air she dropped 87%. She does not however appear to be in the stress with this and she is [facility] to [facility]. They report that she refuses it there. No temperatures are episodes of respiratory distress are evident= Continue antibiotic for what appears to be bronchitis and initial acute exacerbation of chronic respiratory insufficiency. Continue supportive oxygen attempt to wean down the room air. Failing this she will go back with previous orders to [place] where she can discontinue her supplemental oxygen once again. Continue medications for psychiatric and behavioral issues as per her home medications list Patient should have fully removed early childhood associate for anticipated discharge tomorrow DVT Prophylaxis: SCD's - Physician Narrative Narrative: Date: 12/25/17 Time: 1852 Hospital Course Summary Disclaimer: The visit summary below is not to be considered part of the above Progress Note.
[2017-12-25] MEDS: ATORVASTATIN 10 MG TABLET PO SCH (20:23)
[2017-12-25] MEDS: CEFTRIAXONE 1 G in D5W 100 ML IV SCH (20:23)
[2017-12-25] MEDS: NS 1,000 ML IV SCH ×3 (20:23→21:07)
[2017-12-26] VITALS: O2SAT 92
[2017-12-26 07:51] VITALS: BP 196/95; RESP 18; TEMP 98.5
[2017-12-26] MEDS: AZITHROMYCIN 500 MG TABLET PO SCH (08:45)
[2017-12-26] MEDS: CLOPIDOGREL 75 MG TABLET PO SCH (08:45)
[2017-12-26] MEDS: ATENOLOL 100 MG TABLET PO SCH (08:45)
[2017-12-26] MEDS: DULOXETINE 60 MG CAPSULE PO SCH (08:46)
[2017-12-26] MEDS: LISINOPRIL 20 MG TABLET PO SCH (08:46)
[2017-12-26] MEDS: ENOXAPARIN 40 MG/0.4 ML INJECTION SQ SCH (08:46)
[2017-12-26] MEDS: MIRABEGRON 25mg TABLET PO SCH (08:46)
--- NOTE | 2017-12-26 13:46 | Discharge Summary ---
Discharge Information Date of admission: 12/23/17 18:57 Anticipated date of discharge: 12/26/17 Attending Physician: Mark Iniguez MD Primary care physician: Ronald Burgess MD - Discharge Diagnosis (1) Hypoxia Status: Acute (2) HTN (hypertension) Status: Acute (3) Diabetes 1.5, managed as type 2 Status: Acute (4) Dementia with behavioral disturbance Status: Chronic (5) Personality disorder, unspecified Status: Acute Acute hypoxia, improved Bronchitis Hypokalemia, resolved. Hypernatremia HTN Diabetes type 2 Urinary retention, Norton placed but discontinued prior to discharge Personality disorder Dementia - Laboratory Labs: 12/26/17 11:47 12/26/17 11:47 - Microbiology Microbiology 12/23/17 17:54 Peripheral/Iv Start Blood Culture - Preliminary No Growth After 2 Days 12/23/17 18:00 Peripheral/Iv Start Blood Culture - Preliminary No Growth After 2 Days - Radiology Radiology: Date of Exam: 12/23/17 PROCEDURE: CT angio pulm emboli: Findings: Pulmonary arteries: Exam is diagnostic to the subsegmental pulmonary arterial level. No filling defects identified to suggest a pulmonaryembolus. Other findings: Patchy right upper and lower lobe infiltrates with mild atelectasis. No pneumothorax. The central airways are patent. No axillary or mediastinal adenopathy. Mild cardiomegaly. No pericardial effusion. The upper abdomen shows fatty infiltration of the liver. Impression: No pulmonary embolus. Patchy infiltrates could represent pneumonia or aspiration. = = = = = = = = = = = = = = = = = = = = = = = = = = = = = = = = = = = = = = = = = = = = = = = = = = = = = = = = = = = Date of Exam: 12/23/17 PROCEDURE: XR chest 1V: Findings: Lower lobe airspace opacities better seen on the CT. No pleural effusion or pneumothorax. Cardiomegaly. Mediastinal contours are grossly normal. Pulmonary vascularity appears normal. Impression: Lower lobe airspace disease better evaluated on the CT. History of Present Illness HPI: The pt is a 87 yo who lives at [facility] and is minimally active at the facility, mostly she gets around by wheelchair she says. Over the past 2 days the pt reports having a dry nonproductive cough, and today subjective fevers although the staff at the SNF did not report any. At the facility, it was reported that her SaO2 was in the m70's, but EMS recorded mid 80's, in the Er SaO2 wa smid 90's on 3 lpm NC, Objective Vital signs: Temperature 98.5 F 12/26/17 07:48 Pulse Rate 82 12/26/17 08:00 Respiratory Rate 18 12/26/17 07:48 Blood Pressure 196/95 H 12/26/17 07:48 Pulse Oximetry 92 12/26/17 07:48 Height/Weight/BMI: Height 1.68 m Weight 92.6 kg Body Mass Index 33.5 - Constitutional Present: no acute distress, well nourished, well developed - Routine HEENT Exam Head: Present: normocephalic - Routine Respiratory Exam Comments: coarse breath sounds - Routine Cardiovascular Exam Present: RRR, S1, S2 - Routine Abdominal Exam Present: soft, normoactive bowel sounds, non distended, non tender - Routine Extremities Exam Present: edema (trace BLE) - Routine Skin Exam Present: intact, dry, warm - Routine Neurological Exam Present: alert, oriented X3, CN II-XII intact, normal speech - Routine Psychiatric Exam Present: normal affect, normal thought process, cooperative Hospital Course This is a general summary of the patient's hospital course. For more details refer to the complete medical record. Hospital course: Doris Lyon was admitted to the medical floor on 12/23/17 4. Hypoxia. She has started empirically on Rocephin and azithromycin because of leukocytosis and a cough. CT scan of the chest showed possible pneumonia or aspiration, but no PE. In addition, she had greater than 600 mL of urinary retention and a Norton catheter was placed. There was yeast noted in her urine and she received a one- time dose of Diflucan. Nystatin was ordered for yeast dermatitis to the inguinal folds. By her second hospital day, she was requiring 1 L of oxygen. On room air. She continued to drop to 87%. She had oxygen ordered previously at the half-way, but she often refused it. Her white count trended down from 14.4-11.0 by day discharge. She had a brief episode of hypokalemia which was corrected to 3.8 by day discharge. Her sodium was slightly high on day discharge at 147. Blood culture remained negative after 2 days. She was eating and drinking well, however, on day of discharge, she was still requiring 1 L of oxygen. She agreed to continue wearing this back to half-way. We will continue Augmentin in the outpatient setting to complete a seven-day course of antibiotics. Continue with DuoNeb treatments. Continue with Nystatin powder. Recommend follow-up with Dr. Burgess in 1 week. Seen and examined patient on same day as the above note nurse practitioner Shasha Rees. Agree with discharge summary, physical, assessment and plan. Comprehensive physical findings correlate to the above note. Exam: Gen.:no apparent distress, affect remains peculiar HEENT: normocephalic atraumatic, oral mucosa moderately dry neck: no lymphadenopathy no jugular venous distention respiratory: there to auscultation bilaterally with good excursion cardiovascular: cardiovascular S1 S2 no adventitious murmurs rubs or gallops abdomen/GI: soft nondistended with bowel sounds extremities: good peripheral perfusion with no edema skin/integument: no significant injuries or edema. Patient still complains of hypereschesia of the lower extremities neuro: alert but orientation has remained questionable throughout. No focal deficits appreciable psych: less guarded and more interactive Labs: reviewed assessment and plan: hypoxia recovered baseline. She does appear to require 1 L at all times. This was not a new condition for her however she had been refusing use of the nasal cannula and has [place] for some time and they have discontinued attempts to keep this on her. She is being discharged with a completion course of oral amoxicillin for the probable underlying bronchitis Documented on Dragon speech to text. Efforts to crack speech recognition errors performed, but variation may exist Time spent with patient: greater than 35 minutes Resuscitation Status: Full Code Discharge Plan - Discharge Disposition Discharge Date: 12/26/17 Disposition: 04 To [facility] Home/Facility *Condition: Stable Reason For Visit (Visit label in EMR): hypoxia - Discharge Medications *Discharge Medications: New Amoxicillin/Potassium Clav [Augmentin 875-125 Tablet] 1 each PO BIDWM #6 tab Nystatin Powder [Mycostatin] 1 applicatio TP BID bottle Albuterol/Ipratropium [Duoneb] 3 ml AEROSOL Q6H each Continue CloNIDine [Catapres] 0.2 mg PO TID Atenolol [Tenormin] 100 mg PO DAILY Estradiol Vag Cream [Estrace Vag Cream] 1 applicatio VG TUTHSA Duloxetine [Cymbalta] 60 mg PO DAILY Metformin [Glucophage] 500 mg PO BIDWM Cholecalciferol (Vitamin D3) [Vitamin D3] 5,000 unit PO DAILY Sennosides [Senna] 8.6 mg PO BID Chlorhexidine Rinse [Peridex] 15 ml MM HS Acetaminophen [Acetaminophen ER] 650 mg PO BID Polyvinyl Alcohol [Artificial Tears] 1 drop EACH EYE BID Mirabegron [Myrbetriq] 25 mg PO DAILY Clopidogrel [Plavix] 75 mg PO DAILY Multivit,Calc,Mins/Iron/Folic [Thera-M Tablet] 1 tab PO DAILY Guaifenesin/Dextromethorphan [Diabetic Tussin Dm Max-Str Liq] 10 ml PO Q4H PRN PRN Reason: Cough Tramadol [Ultram] 50 mg PO Q6HR PRN #20 tab PRN Reason: Pain Acetaminophen [Acetaminophen 8 Hour] 650 mg PO Q8H PRN #0 PRN Reason: PAIN Docusate Sodium [Colace] 100 mg PO Q2D Lisinopril [Prinivil] 20 mg PO BID Milk of Magnesia [Mom] 30 ml PO DAILY PRN PRN Reason: Constipation NIFEdipine [Adalat cc] 60 mg PO BID PEG 3350 17gm PACKET [Miralax] 17 gm PO DAILY PRN PRN Reason: Constipation Eucerin Cream [Eucerin] 1 applicatio TP DAILY PRN PRN Reason: Prn Orders Atorvastatin [Lipitor] 10 mg PO HS Discontinued CephALEXin [Keflex 500 mg] 500 mg PO TID - Discharge Packet/Instructions *Diet: Consistent carbohydrate *Activity: Resume prior activity level *Pain Management/Treatment: Tramadol, Tylenol PRN *Wound Care: N/A Additional Instructions: Monitor for urinary retention. A norton was placed during hospitalization. *Expected Signs/Symptoms: Cough, occasional shortness of breath *Notify Physician if: Fever, difficulty breathing, chest pain, altered mental status, vomiting or aspiration, or any new concerns. *During Business Hours Contact: [facility], Dr. Burgess office. *After Business Hours Contact: The on-call provider for Dr. Burgess *Pending Lab/Results: No Pending Lab - Referrals/Follow Up *Referrals/Follow Up: Ronald Burgess MD [Primary Care Provider] - 1 Week - Patient Handouts - Dismissal Complete Discharge Instructions are:: Complete Physician Narrative - Narrative Attestation Narrative: Date: 12/26/17 Time: 3757
--- NOTE | 2017-12-26 15:17 | Extended Care Facility Orders ---
Admission Orders Admit to:: [facility] Allergies/Adverse Reactions: Allergies codeine Adverse Reaction (Unknown, Verified 12/23/17 17:25) Vomiting Admitting Diagnosis: hypoxia Admitting Physician: Mark Iniguez MD Attending Physician: Mark Iniguez MD Code Status: Full Code Anticiapted Length of Stay: greater than 30 days Rehab Potential: poor Rehab Prognosis: poor Diet: 12/25/17 Lunch Consistent Carbohydrate Diet [DIET] Calorie Level: 1800 May use Facility Protocol or Standing Orders: Yes May have flu vaccine: Yes - Additional Information Referrals: Ronald Burgess MD [Primary Care Provider] - 1 Week
[2018-01-08 08:43] VITALS: PULSE 82
== END 2017-12-26 16:35 | DRG 202 ==
LOC: ED 16:53 → EDHOLD 18:57 → SUATTDRO 18:57 → MED 19:41
PROVIDERS: ADMIT Internal Medicine; ATTEND Family Medicine